=== PATIENT | female | born 1985 ===

== ENCOUNTER 2019-10-13 21:46 | Emergency (ER) | payer MEDICAID, OTHER ==
[2019-10-13 22:38] LABS: Basophils % (Auto) 0.5 % (0.0-1.8); Eosinophils % (Auto) 0.2 % (0.0-4.3); Hematocrit 38.6 % (30.3-42.9); Hemoglobin 13.6 gm/dl (10.1-14.3); Lymphocytes # (Auto) 1.7 K/mm3 (1.2-5.4); Lymphocytes % (Auto) 31.5 % (13.4-35.0); Mean Corpuscular HGB Conc 35 % (30-34); Mean Corpuscular Volume 88 fl (79-97); Monocytes # (Auto) 0.6 K/mm3 (0.0-0.8); Monocytes % (Auto) 10.2 % (0.0-7.3); Platelet Count 238 K/mm3 (140-440); Red Blood Count 4.38 M/mm3 (3.65-5.03); Red Cell Distribution Width 13.3 % (13.2-15.2)
--- NOTE | 2019-10-13 22:41 | Emergency Department Report ---
ED Abdominal Pain HPI - General Chief Complaint: Abdominal Pain Stated Complaint: LOWER ABDOMINAL/BACK PAIN, SHORTNESS OF BREATH Time Seen by Provider: 10/13/19 22:17 Source: patient Mode of arrival: Ambulatory Limitations: No Limitations - History of Present Illness Initial Comments: Patient is a 34-year-old female that presents emergency room with complaints of lower abdominal pain. Patient that her lower abdominal pain been going on for a week. Patient states that the abdominal pain is a 6 out of 10. They states her symptoms are worsening. They states her pain is better with rest and worse with palpation and movement. Patient denies fever and chills. Patient denies nausea vomiting. Patient states that she has suspected coronavirus and never has been tested. Patient states she was seen quarantine to her house. Patient states that she still having a slight cough. Patient denies fever. Patient states he is short of breath. Patient states that her shortness of breath started 2 days ago. Patient states shortness of breath is better with rest and worse with exertion. Patient states he had diarrhea for 1 day and has resolved. Patient never was tested because she did not want to go and pay for it. MD Complaint: abdominal pain -: Sudden Location: LLQ, RLQ Radiation: back Migration to: no migration Severity: severe Severity scale (0 -10): 6 Improves With: rest Worsens With: movement, other Context: sick contacts Associated Symptoms: diarrhea. denies: nausea, vomiting, fever, chills, constipation, dysuria, hematemesis, hematochezia, melena, hematuria, anorexia, syncope - Related Data LMP (females 10-50): other (Patient is status post tubal ligation.) Previous Rx's Medication Instructions Recorded Last Taken Type Sulfamethoxazole/Trimethoprim 1 each PO BID 10 Days #20 tablet 10/14/19 Unknown Rx [Bactrim DS TAB] Allergies Allergy/AdvReac Type Severity Reaction Status Date / Time No Known Allergies Allergy Unverified 10/13/19 21:57 ED Review of Systems ROS: Stated complaint: LOWER ABDOMINAL/BACK PAIN, SHORTNESS OF BREATH Other details as noted in HPI Constitutional: denies: chills, fever Eyes: denies: eye pain, eye discharge, vision change ENT: denies: ear pain, throat pain Respiratory: cough, shortness of breath. denies: wheezing Cardiovascular: denies: chest pain, palpitations Endocrine: no symptoms reported Gastrointestinal: abdominal pain. denies: nausea, diarrhea Genitourinary: denies: urgency, dysuria, discharge Musculoskeletal: denies: back pain, joint swelling, arthralgia Skin: denies: rash, lesions Neurological: denies: headache, weakness, paresthesias Psychiatric: denies: anxiety, depression Hematological/Lymphatic: denies: easy bleeding, easy bruising ED Past Medical Hx - Past Medical History Previous Medical History?: No - Surgical History Past Surgical History?: Yes Additional Surgical History: c-sect x2. tubaligation - Family History Family history: no significant - Social History Smoking Status: Former Smoker Substance Use Type: Alcohol - Medications Home Medications: Home Medications Medication Instructions Recorded Confirmed Last Taken Type Sulfamethoxazole/Trimethoprim 1 each PO BID 10 Days #20 tablet 10/14/19 Unknown Rx [Bactrim DS TAB] ED Physical Exam - General Limitations: No Limitations General appearance: alert, in no apparent distress - Head Head exam: Present: atraumatic, normocephalic - Eye Eye exam: Present: normal appearance - ENT ENT exam: Present: mucous membranes moist - Neck Neck exam: Present: normal inspection - Respiratory Respiratory exam: Present: normal lung sounds bilaterally. Absent: respiratory distress - Cardiovascular Cardiovascular Exam: Present: regular rate, normal rhythm. Absent: systolic murmur, diastolic murmur, rubs, gallop - GI/Abdominal GI/Abdominal exam: Present: soft, tenderness (Bilateral lower quadrant and suprapubic tenderness to palpation.), normal bowel sounds - Extremities Exam Extremities exam: Present: normal inspection - Back Exam Back exam: Present: normal inspection - Neurological Exam Neurological exam: Present: alert, oriented X3 - Psychiatric Psychiatric exam: Present: normal affect, normal mood - Skin Skin exam: Present: warm, dry, intact, normal color. Absent: rash ED Course Vital Signs 10/13/19 10/13/19 21:58 23:03 Temperature 98.7 F Pulse Rate 100 H Respiratory 20 18 Rate Blood Pressure 142/97 O2 Sat by Pulse 95 100 Oximetry - Reevaluation(s) Reevaluation #1: Patient ambulatory in ER. Patient sat stable during ambulation. I discussed all results and clinical findings with patient. I discussed plan of care with patient. Patient agrees with plan of care. Patient is stable for discharge. Patient will be discharged home. Patient given discharge instructions. Patient voiced understanding of discharge instructions. 10/14/19 00:23 ED Medical Decision Making - Lab Data Result diagrams: 10/13/19 22:22 10/13/19 22:22 - Radiology Data Radiology results: report reviewed, image reviewed CHEST 1 VIEW 10/13/2019 11:36 PM INDICATION / CLINICAL INFORMATION: sob.. COMPARISON: None available. FINDINGS: SUPPORT DEVICES: None. HEART / MEDIASTINUM: No significant abnormality. LUNGS / PLEURA: No significant pulmonary or pleural abnormality. No pneumothorax. ADDITIONAL FINDINGS: No significant additional findings. IMPRESSION: 1. No acute findings. CT ABDOMEN AND PELVIS WITH CONTRAST INDICATION / CLINICAL INFORMATION: yumiko lower abd pain. TECHNIQUE: Axial CT images were obtained through the abdomen and pelvis after 100 mL Omnipaque [address] scans at this location are performed using CT dose reduction f or ALARA by means of automated exposure control. COMPARISON: None available. FINDINGS: LOWER CHEST: Scattered patchy bibasilar groundglass and parenchymal densities. LIVER: Liver appears slightly hypodense possibly representing mild fatty infiltration. GALLBLADDER: No significant abnormality. BILE DUCTS: No significant abnormality. PANCREAS: No significant abnormality. SPLEEN: No significant abnormality. ADRENALS: No significant abnormality. RIGHT KIDNEY and URETER: No significant abnormality. LEFT KIDNEY and URETER: Small nonobstructing stones in the lower pole. No ureteral stone or hydronephrosis. STOMACH and SMALL BOWEL: No significant abnormality. COLON: No significant abnormality. APPENDIX: No significant abnormality. PERITONEUM: No free fluid. No free air. No fluid collection. LYMPH NODES: No significant adenopathy. AORTA and ARTERIES: No significant abnormality. IVC and VEINS: No significant abnormality. URINARY BLADDER: No significant abnormality. REPRODUCTIVE ORGANS: 2 cm right ovarian follicle. No significant abnormality. ADDITIONAL FINDINGS: None. SKELETAL SYSTEM: No significant abnormality. IMPRESSION: 1. No inflammatory process or bowel obstruction. 2. 2 cm right ovarian follicle. This is a common finding in a young female patient. No routine follow-up is needed. 3. Left nephrolithiasis but no ureteral stone or hydronephrosis. 4. Mild patchy bibasilar densities including groundglass opacities. This finding is nonspecific but can potentially be related to atypical/viral pneumonia. Clinical and laboratory correlation is recommended. - Medical Decision Making Patient is a 34-year-old female that presents emergency room with complaints of lower abdominal pain. Patient states she is recently suspected of having COVID 19. Patient states her fever is gone but she is having a mild cough and her shortness of breath is increasing. Patient had an abdominal CT done which shows ovarian cyst, nonobstructing benign renal stones and groundglass appearance to the lungs. Patient's chest x-ray was negative. Patient's labs are unremarkable except for UTI. Patient's walking oxygen saturation was stable and above 96 the entire time. Patient's stable for discharge. Patient given antibiotics for her UTI. Patient instructed not to take ibuprofen. Patient instructed to quarantine for 14 days. Patient instructed to contact her local health department. Patient also instructed to follow-up with her [facility] for management of her ovarian cyst. - Differential Diagnosis Abdominal pain, shortness of breath, COVID, cough, UTI Critical care attestation.: If time is entered above; I have spent that time in minutes in the direct care of this critically ill patient, excluding procedure time. ED Disposition Clinical Impression: Suspected COVID-19 virus infection, Viral pneumonia, Renal stone, SOB (shortness of breath) Abdominal pain Qualifiers: Abdominal location: lower abdomen, unspecified Qualified Code(s): R10.30 - Lower abdominal pain, unspecified UTI (urinary tract infection) Qualifiers: Urinary tract infection type: acute cystitis Hematuria presence: with hematuria Qualified Code(s): N30.01 - Acute cystitis with hematuria Ovarian cyst Qualifiers: Laterality: unspecified laterality Qualified Code(s): N83.209 - Unspecified ova kj cyst, unspecified side Disposition: DC-01 TO HOME OR SELFCARE Is pt being admited?: No Does the pt Need Aspirin: No Condition: Stable Instructions: COVID-19, Ovarian Cyst (ED), Urinary Tract Infection in Women (ED), Abdominal Pain (ED) Additional Instructions: Patient to follow-up with primary care in 2 to 3 days. Patient to follow-up with [facility] [employer] [facility] in 2 to 3 days. Patient to rest. Patient to increase water. Patient to self quarantine at home for 14 days. Patient to take Tylenol as needed. Patient to avoid ibuprofen.. Patient to take meds as directed. Patient to return to the ER if condition worsens, changes or new symptoms arise. Patient to contact health department for possible testing. Prescriptions: Sulfamethoxazole/Trimethoprim [Bactrim DS TAB] 1 each PO BID 10 Days #20 tablet Referrals: ANDREA BLANCAS MD [Primary Care Provider] - 2-3 Days Time of Disposition: 00:25
[2019-10-13 22:42] LABS: Bilirubin,Urine NEG (Negative); Blood,Urine NEG (Negative); Color,Urine Yellow (Yellow); Mucus,Urine 3+ /HPF
[2019-10-13 22:53] LABS: Alanine Aminotransferase 32 units/L (7-56); Albumin 4.5 g/dL (3.9-5); BUN/Creatinine Ratio 15; Blood Urea Nitrogen 12 mg/dL (7-17); Calcium 9.2 mg/dL (8.4-10.2); Hemolysis Index 2
--- NOTE | 2019-10-14 | XRay Report ---
CHEST 1 VIEW 10/13/2019 11:36 PM INDICATION / CLINICAL INFORMATION: sob.. COMPARISON: None available. FINDINGS: SUPPORT DEVICES: None. HEART / MEDIASTINUM: No significant abnormality. LUNGS / PLEURA: No significant pulmonary or pleural abnormality. No pneumothorax. ADDITIONAL FINDINGS: No significant additional findings. IMPRESSION: 1. No acute findings. Signer Name: Christina Dos Santos MD Signed: 10/13/2019 11:56 PM Workstation Name: [id number]
--- NOTE | 2019-10-14 00:08 | Cat Scan Report ---
CT ABDOMEN AND PELVIS WITH CONTRAST INDICATION / CLINICAL INFORMATION: yumiko lower abd pain. TECHNIQUE: Axial CT images were obtained through the abdomen and pelvis after 100 mL Omnipaque [address] scans at this location are performed using CT dose reduction for ALARA by means of automated exposure control. COMPARISON: None available. FINDINGS: LOWER CHEST: Scattered patchy bibasilar groundglass and parenchymal densities. LIVER: Liver appears slightly hypodense possibly representing mild fatty infiltration. GALLBLADDER: No significant abnormality. BILE DUCTS: No significant abnormality. PANCREAS: No significant abnormality. SPLEEN: No significant abnormality. ADRENALS: No significant abnormality. RIGHT KIDNEY and URETER: No significant abnormality. LEFT KIDNEY and URETER: Small nonobstructing stones in the lower pole. No ureteral stone or hydroneph rosis. STOMACH and SMALL BOWEL: No significant abnormality. COLON: No significant abnormality. APPENDIX: No significant abnormality. PERITONEUM: No free fluid. No free air. No fluid collection. LYMPH NODES: No significant adenopathy. AORTA and ARTERIES: No significant abnormality. IVC and VEINS: No significant abnormality. URINARY BLADDER: No significant abnormality. REPRODUCTIVE ORGANS: 2 cm right ovarian follicle. No significant abnormality. ADDITIONAL FINDINGS: None. SKELETAL SYSTEM: No significant abnormality. IMPRESSION: 1. No inflammatory process or bowel obstruction. 2. 2 cm right ovarian follicle. This is a common finding in a young female patient. No routine follow -up is needed. 3. Left nephrolithiasis but no ureteral stone or hydronephrosis. 4. Mild patchy bibasilar densities including groundglass opacities. This finding is nonspecific but c an potentially be related to atypical/viral pneumonia. Clinical and laboratory correlation is recomme nded. Signer Name: Christina Dos Santos MD Signed: 10/14/2019 12:03 AM Workstation Name: [id number]
[2019-10-14 00:52] VITALS: BP 147/75
== END 2019-10-14 00:30 | disposition home or self-care (01) ==
LOC: ED 21:46
DX: N39.0 Urinary tract infection, site not specified (principal); N83.209 Unspecified ovarian cyst, unspecified side; J18.8 Other pneumonia, unspecified organism; N20.0 Calculus of kidney; Z98.51 Tubal ligation status; Z87.891 Personal history of nicotine dependence
CPT/HCPCS: 36415; 71045; 74177; 80053; 81001; 84703; 85025; 87086; 99284; Q9967